=== PATIENT | male | born 1955 ===

== ENCOUNTER → 2019-01-07 | Outpatient (REF) ==
--- NOTE | 2019-01-07 13:55 | REP ---
Clinical: Pain and disability. Technique: AP, lateral, coned-down views of the lumbosacral spine. Findings: Approximately 15 mm of chronic anterolisthesis and associated spondylolysis noted at the L5-S1 level with endplate sclerosis and disc space narrowing as well as hypertrophic facet changes. Endplate sclerosis and disc space narrowing at L4-5 and to a lesser extent L3-4. Early spurring at the L2-3 level without significant disc space narrowing. Impression: Moderate to advanced degenerative changes primarily involving L5-S1 with chronic spondylolysis and spondylolisthesis. Electronically Signed by Pablo Payan MD 01/07/2019 01:46 P
== END ==
LOC: M SMT 13:20
PROVIDERS: ATTEND Internal Medicine
DX: M51.36 Other intervertebral disc degeneration, lumbar region (principal); Z02.71 Encounter for disability determination